=== PATIENT | female | born 1965 | race Caucasian/White ===

== ENCOUNTER 2024-09-28 16:28 | Observation (INO) ==
--- NOTE | 2024-09-28 16:55 | ED Physician Documentation ---
History of Present Illness Stated complaint Stated Complaint: RT LEG PX Chief complaint Chief Complaint: Ext Problem Additonal information Additional information: 58-year-old presents with continued right lower extremity infection. I saw this patient yesterday. Please refer to history obtained then. In short, this patient was seen for cellulitis of her right lower extremity after a lymph edema procedure earlier this month. She had an I&D with surgery at bedside in the ER yesterday. She was placed on linezolid. She presents today due to continued worsening erythema of her right lower extremity. Pain has improved. However, she was concerned that she has noticed the redness swelling. She also had a positive blood culture that was drawn yesterday showing gram-positive cocci in clusters. She thinks she had a subjective fever last night but did not check her temperature. Meds/Allgy Home Medications Ambulatory Orders Medication Instructions Recorded Confirmed linezolid 600 mg tablet (Zyvox) 600 mg PO Q12H #20 tab s 09/27/24 Allergies Allergies Allergy/AdvReac Type Severity Reaction Status Date / Time No Known Drug Allergies Allergy Verified 09/28/24 16:44 PFSH Active Problems All Active Problems (Updated 09/28/24 @ 17:36 by Teodoro Rodriguez MD) Cellulitis and abscess of right leg (Acute) Cellulitis and abscess of right leg (Acute) Fluid collection at surgical site (Acute) Arthralgia of right ankle (Acute) Arthralgia of right knee (Acute) Medical History Medical History (Updated 09/28/24 @ 17:36 by Teodoro Rodriguez MD) History of menopause Lymphedema Social History Social History Smoking Status: Never smoker Relationship: Do you feel safe in your home environment?: Yes Suffered physical, verbal, emotional, or financial abuse?: No POLST Patient has POLST: No Exam Exam Vital Signs: Vital Signs x48h Temp Pulse Resp BP Pulse Ox 09/28/24 16:40 36.9 C 112 H 18 132/72 H 98 Resting comfortably in no acute distress. Patient is afebrile. She is tachycardic. Area of erythema of the right thigh does appear to be expanded compared to when I saw her yesterday. The area is warm to the touch. There is continued clear drainage from the right lower calf surgical wound. There is not significant tenderness of the right lower extremity. There is no crepitus pr esent. Results Vitals Vitals: Vital Signs - 24 hr 09/28/24 16:40 Temperature 36.9 C Temperature Source Oral Pulse Rate 112 H Respiratory Rate 18 Blood Pressure 132/72 H O2 Saturation 98 O2 Source Room air Pain Intensity 6 Oxygen O2 Source Room air Labs Labs: Laboratory Tests 09/28/24 17:03 WBC 7.5 RBC 2.89 L Hgb 8.8 L Hct 28.1 L MCV 97.2 MCH 30.4 MCHC 31.3 L RDW 14.6 Plt Count 377 MPV 9.0 Neut # (Auto) 6.2 Lymph # (Auto) 0.8 L [place] # (Auto) 0.4 Eos # (Auto) 0.1 Baso # (Auto) 0.0 Absolute Nucleated RBC 0.00 Nucleated RBC % 0.0 Sodium 139 Potassium 3.9 Chloride 105 Carbon Dioxide 26 Anion Gap 8.0 BUN 14 Creatinine 0.8 Estimated GFR (MDRD) 73 L Glucose 128 H Lactic Acid 1.3 Calcium 8.7 Total Bilirubin 0.4 AST 19 ALT 15 Alkaline Phosphatase 55 Total Protein 5.5 L Albumin 3.6 Globulin 1.9 L Albumin/Globulin Ratio 1.9 PD Medical Decision Making ED course ED course: This patient presents due to spreading erythema of her right lower extremity. We also called her regarding the positive blood culture. While linezolid should help treat her infection, I think she would benefit from admission for the purulent cellulitis and IV vancomycin. Having lymphedema puts her at risk for cellulitis as well. She is tachycardic here but white blood cell count remains not elevated. Sepsis does not appear to be present at this time, and lactic acid is not elevated. I did add on 2 additional blood cultures to evaluate for true bacteremia versus contaminant. Discharge Plan Discharge Patient Disposition: [facility] DC/Xfer Clinical Impression: Cellulitis and abscess of right leg Prescriptions: No Action linezolid [Zyvox] 600 mg tablet 600 mg PO Q12H Qty: 20 0RF Print Language: Lao
[2024-09-28] MEDS: LACTATED RINGERS 1,000 ML IV STA (17:03)
[2024-09-28] MEDS: VANCOMYCIN INJ 1.25 GM in SODIUM CHLORIDE 0.9% 250 ML IV STA (17:12)
[2024-09-28 17:15] LABS: BASOPHILS % (AUTO) 0.5 %; EOSINOPHILS # (AUTO) 0.1 10^3/uL (0.0-0.7); EOSINOPHILS % (AUTO) 0.7 %; HCT - HEMATOCRIT 28.1 % (37.0-47.0); HGB - HEMOGLOBIN 8.8 g/dL (12.0-16.0); LYMPHOCYTES # (AUTO) 0.8 10^3/uL (1.5-3.5); LYMPHOCYTES % (AUTO) 10.6 %; MEAN CORPUSCULAR HEMOGLOBIN 30.4 pg (27.0-31.0); MEAN CORPUSCULAR HGB CONC 31.3 g/dL (32.0-36.0); MEAN CORPUSCULAR VOLUME 97.2 fL (81.0-99.0); MONOCYTES # (AUTO) 0.4 10^3/uL (0.0-1.0); MONOCYTES % (AUTO) 5.1 %; NEUTROPHILS # (AUTO) 6.2 10^3/uL (1.5-6.6); PLT - PLATELET COUNT 377 10^3/uL (130-450); RED BLOOD COUNT 2.89 10^6/uL (4.20-5.40); RED CELL DISTRIBUTION WIDTH 14.6 % (12.0-15.0); WHITE BLOOD COUNT 7.5 x10^3/uL (4.8-10.8)
[2024-09-28 17:27] LABS: ALBUMIN 3.6 g/dL (3.2-5.5); ALBUMIN/GLOBULIN RATIO 1.9 (1.0-2.2); BILIRUBIN,TOTAL 0.4 mg/dL (0.2-1.0); CALCIUM 8.7 mg/dL (8.5-10.3); CREATININE 0.8 mg/dL (0.6-1.3); POTASSIUM 3.9 mmol/L (3.5-4.5); TOTAL PROTEIN 5.5 g/dL (6.4-8.9)
--- NOTE | 2024-09-28 18:07 | HISTORY & PHYSICAL EXAMINATION ---
Chief Complaint Chief Complaint Chief Complaint: Right lower leg swelling and redness History of Present Illness Admitted From Admitted From:: Home History Obtained From Records Reviewed: EMR History obtained from: Patient Exam Limitations: None History of Present Illness HPI Comment/Other: Patient is a 58-year-old female with a history of lipedema who presents following a tumescent liposuction procedure performed in clinic in [place] 3 weeks ago. This procedure was performed on her upper arms, as well as her calves, and upper thighs. Since then, she has had intermittent fevers and chills. She has also had increasing pain in her bilateral lower extremities, right worse than left. The pain was so severe at home that she decided to come in yesterday. In the emergency room, yesterday, a CT scan was done and it showed superficial fluid collections within the lower extremity at the level of the tibia and distal femur. Venous duplex was also done which showed no DVTs. General surgery did do an incision and drainagethey removed about 3 cc of slightly turbid yellow fluid, which resulted in less pain for the patient. She was sent home with a prescription of Zyvox. She returns today because of worsening redness which she states has spread up from the incision site to near her groin. She also feels warmth and tenderness to touch in that area. She also complains of intermittent fevers and chills. She does state that the pain has improved, and she has been able to walk around. In the ED, patient was normotensive with blood pressure 132/72, she was saturating 98% on room air. Respiratory rate was 18, she was lightly tachycardic at 112. She was afebrile. Lab work was reviewedshe has no leukocytosis. White blood cell count is 7.5. Her hemoglobin is low at 8.8. Her BMP was largely unremarkable. She was admitted for cellulitis that failed outpatient antibiotic therapy. Meds/Allgy Home Medications Ambulatory Orders Medication Instructions Recorded Confirmed linezolid 600 mg tablet (Zyvox) 600 mg PO Q12H #20 tab s 09/27/24 Allergies Allergies Allergy/AdvReac Type Severity Reaction Status Date / Time No Known Drug Allergies Allergy Verified 09/28/24 16:44 PFSH Active Problems All Active Problems (Updated 09/28/24 @ 18:20 by Sonja Luna MD) Anemia (Acute) Gram-positive bacteremia (Acute) Cellulitis and abscess of right leg (Acute) Cellulitis and abscess of right leg (Acute) Fluid collection at surgical site (Acute) Arthralgia of right ankle (Acute) Arthralgia of right knee (Acute) Medical History Medical History History of menopause Lymphedema Social History Social History Smoking Status: Never smoker Relationship: Do you feel safe in your home environment?: Yes Suffered physical, verbal, emotional, or financial abuse?: No POLST Patient has POLST: No POLST Status: Full Code Review of Systems Constitutional Reports: Fatigue, Fever and Chills; Denies: Malaise, Weakness or Poor appetite Eyes Denies: Pain, Irritation, Blurry vision, Vision loss, Diplopia or Eye discomfort Ears, nose, mouth, and throat Denies: Ear pain, Hearing loss, Tinnitus, Nose bleeds, Nasal discharge, Mouth lesions, Bleeding gums or Neck pain Cardiovascular Reports: edema; Denies: Irregular heart rate, chest pain, palpitations, Syncope or shortness of breath with exertion Respiratory Denies: Shortness of breath, Cough, Sputum production or Wheezing Gastrointestinal Denies: Abdominal pain, Abdominal distention, Nausea, Vomiting, Heartburn, Diarrhea or Constipation Genitourinary Denies: Painful urination, Urinary frequency or Urinary urgency Musculoskeletal Reports: Extremity pain and Extremity swelling; Denies: Back pain, Neck pain or Joint pain Integumentary/Breast Reports: Rash, Redness, Skin pain, Skin tenderness, Skin swelling and Non- healing lesion; Denies: Itching or Dryness Neurological Denies: Headache, General weakness, Weakness in extremities, Numbness in extremities, Abnormal gait or Dizziness Psychiatric Denies: Depression, Anxiety, Mood swings or Panic attacks Endocrine Reports: Fatigue; Denies: Excessive urination or Excessive thirst Hematologic/Lymphatic Denies: Anemia, Easy bruising or Easy bleeding Allergic/Immunologic Denies: Hives, Tongue swelling, Facial swelling or Wheezing Prior Level of Functionality: Fully independent at baseline. Has been using a walker to get around. Exam Exam Vital Signs: Vital Signs x48h Temp Pulse Resp BP Pulse Ox 09/28/24 16:40 98.4 F 112 H 18 132/72 H 98 Constitutional normal general appearance, no apparent distress, average body habitus and no limitations HENMT normocephalic, head/scalp atraumatic and hearing grossly normal bilaterally Eyes PERRL, EOMs intact bilaterally and conjunctivae normal Neck/C-Spine visual inspection normal, trachea midline and cervical spine nontender Chest inspection of chest normal Respiratory breath sounds equal bilaterally, normal respiratory effort, clear to auscultation bilaterally, no wheezes, no rales and no retractions Cardiovascular normal heart rate noted, regular rhythm noted, no gallop, no rub and no murmur Gastrointestinal abdomen normal to inspection, abdomen soft to palpation, nontender to palpation and normoactive bowel sounds Genitourinary no CVA tenderness and bladder normal to palpation Back/Pelvis spine normal to inspection, no thoracic spine tenderness and no lumbar spine tenderness Extremities Patient with surgical scars on bilateral arms; good granulation tissue, no drainage or erythema noted in upper extremities. Right lower extremity with swelling, some yellow to clear drainage noted on posterior calf at incision site. Erythema starting from calf with streaks upwards towards the groin. Tender to touch, warm to touch. Left lower extremity with some excoriations, no erythema or tenderness noted. Bilateral nonpitting edema noted in lower extremities as well. Neurology no movement abnormality noted and no focal motor deficit noted Psychiatry mental status grossly normal, oriented x3, thought process normal, cooperative and affect normal Skin See extremities exam for description of rash. Conclusion/Plan Problem List (1) Cellulitis and abscess of right leg: Plan: Patient recently had tumescent liposuction procedure performed in clinic in [place]. All surgical sites are healing appropriately, except right lower extremity. Presented to the ED on 09/27, CT scan demonstrated superficial abscesses. I&D was performed. Patient was sent home on Zyvox. Returns today as she has failed outpatient oral antibiotics. Worsening erythema, streaks noted of her right leg towards the groin. IV vancomycin started. Continue to monitor. (2) Gram-positive bacteremia: Plan: Wound culture from I&D is not growing anything. However, 1 out of 2 blood cultures is growing gram-positive cocci (collected 09/27 during ED visit). There is concern for contamination. However, will await final results. Repeat blood cultures ordered today. (3) Anemia: Plan: Patient does have a anemia, no baseline is documented. Iron, ferritin, TIBC, iron percent saturation are ordered, remain pending. 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 Lab Results Lab results reviewed: Yes 09/28/24 17:03 09/28/24 17:03 Core Measures Anticipated LOS I expect patient to be DC'd or transferred within 96 hours.: Yes DVT/VTE - Prophylaxis VTE/DVT Device ordered at admit?: No VTE/DVT Prophylaxis med ordered at admit?: Yes
[2024-09-28 18:34] LABS: % IRON SATURATION 4 % (20-50); IRON 11 ug/dL (50-212); TOTAL IRON BINDING CAPACITY 248 ug/dL (250-450); TRANSFERRIN 177 mg/dL (203-362)
[2024-09-28] MEDS ORDERED: SODIUM CHLORIDE FLUSH 0.9% 10 ML SYRINGE IVP PRN (18:38)
[2024-09-28] MEDS: LACTATED RINGERS 1,000 ML IV SCH (19:34)
[2024-09-28] MEDS: ACETAMINOPHEN 325 MG TABLET PO PRN (20:16)
[2024-09-29] MEDS: SODIUM CHLORIDE FLUSH 0.9% 10 ML SYRINGE IVP SCH (02:22)
[2024-09-29 05:19] LABS: HCT - HEMATOCRIT 23.8 % (37.0-47.0); HGB - HEMOGLOBIN 7.6 g/dL (12.0-16.0); MEAN CORPUSCULAR HEMOGLOBIN 30.6 pg (27.0-31.0); MEAN CORPUSCULAR HGB CONC 31.9 g/dL (32.0-36.0); MEAN PLATELET VOLUME 9.1 fL (7.9-10.8); RED BLOOD COUNT 2.48 10^6/uL (4.20-5.40); RED CELL DISTRIBUTION WIDTH 14.9 % (12.0-15.0); WHITE BLOOD COUNT 5.1 x10^3/uL (4.8-10.8)
[2024-09-29 05:35] LABS: CALCIUM 8.1 mg/dL (8.5-10.3); CREATININE 0.7 mg/dL (0.6-1.3)
[2024-09-29] MEDS: VANCOMYCIN INJ 0.75 GM in SODIUM CHLORIDE 0.9% 250 ML IV SCH (05:38)
[2024-09-29] MEDS: KETOROLAC 15 MG/ML VIAL IVP PRN (05:43)
--- NOTE | 2024-09-29 07:13 | PHARMACY PROGRESS NOTE ---
Vancomycin Therapy Monitoring Vancomycin Therapy Goals Treatment Indication: CELLULITIS Vancomycin Target Range: Vancomycin AUC Target Range 400-600 mcg*h/ml Plan: New Regimen (Enter new dose and interval): 1 GRAM IV EVERY 12 HOURS Areas for additonal monitoring Areas for additional monitoring: IV to PO when appropriate, Therapy de- escalation based on culture results and Acute Kidney Injury
[2024-09-29] MEDS: ENOXAPARIN 40 MG/0.4 ML SYRINGE SUBQ SCH (08:54)
[2024-09-29] MEDS: FERROUS SULFATE 325 MG TABLET PO SCH (08:55)
--- NOTE | 2024-09-29 09:58 | PROVIDER PROGRESS NOTE ---
Subjective Subjective Subjective: Patient denies any fevers or chills. She still some pain in her right leg. She is having difficulty walking due to the pain. Current Medications Current Medications Current Medications: Current Medications Generic Name Dose Route Start Last Admin Trade Name Freq PRN Reason Stop Dose Admin Acetaminophen 650 mg 09/28/24 18:38 09/29/24 02:21 Acetaminophen 325 Mg Tablet PO 650 mg Q4HR PRN Administration Pain or Fever > 38C (100.4F) Enoxaparin Sodium 40 mg 09/29/24 09:00 09/29/24 08:54 Enoxaparin 40 Mg/0.4 Ml Syringe SUBQ Not Given DAILY CIRILO Ferrous Sulfate 325 mg 09/29/24 08:00 09/29/24 08:55 Ferrous Sulfate 325 Mg Tablet PO 325 mg DAILYWM CIRILO Administration Lactated Ringer's 1,000 mls @ 100 mls/hr 09/28/24 18:38 09/29/24 05:37 Lr IV 100 mls/hr .Q10H CIRILO Administration Vancomycin HCl 1 gm/ Sodium 250 mls @ 167 mls/hr 09/29/24 17:00 Chloride IV Q12H CIRILO Ketorolac Tromethamine 15 mg 09/28/24 18:38 09/29/24 05:43 Ketorolac 15 Mg/Ml Vial IVP 10/03/24 18:37 15 mg Q6HR PRN Administration Severe Pain (Level 7-10) Sodium Chloride 10 ml 09/28/24 18:38 Sodium Chloride Flush 0.9% 10 Ml Syringe IVP PRN PRN NEEDED PER PROVIDER ORDERS Sodium Chloride 10 ml 09/29/24 01:00 09/29/24 08:55 Sodium Chloride Flush 0.9% 10 Ml Syringe IVP 10 ml 0100,0900,1700 CIRILO Administration Objective Vital Signs/Intake & Output Reviewed Vital Signs: Yes Vital Signs: Vital Signs x48h Temp Pulse Resp BP Pulse Ox 09/29/24 09:00 98.1 F 103 H 18 101/61 96 09/29/24 04:45 98.1 F 86 16 112/60 96 Intake & Output: Intake & Output 09/26/24 09/27/24 09/28/24 09/29/24 23:59 23:59 23:59 23:59 Intake Total 1550 / 1550 1650 / 1650 Output Total 200 / 200 2200 / 2200 Balance 1350 / 1350 -550 / -550 Weight (kg) 60 kg Objective General Appearance: positive No acute distress and Alert; negative Anxious Eyes Bilateral: positive Normal inspection, PERRL and EOMI ENT: positive ENT inspection nml, Pharynx nml and No signs of dehydration Neck: positive Nml inspection, Thyroid nml and No JVD Respiratory: positive Chest non-tender, No respiratory distress and Breath sounds nml; negative Wheezes, Rales or Rhonchi Cardiovascular: positive Regular rate & rhythm, No murmur and No gallop; negative Tachycardia or Systolic murmur Abdomen: positive Non-tender, No organomegaly and No distention; negative Guarding or Splenomegaly Back: positive Nml inspection; negative CVA tenderness (R) or CVA tenderness (L) Skin: positive Other (see below.) Extremities: positive Non-tender, Full ROM, Nml appearance and No pedal edema Neurologic/Psychiatric: positive Oriented x3, Motor nml and Mood/affect nml Comments/Other: Patient with surgical scars on bilateral arms; good granulation tissue, no drainage or erythema noted in upper extremities. Right lower extremity with swelling, some yellow to clear drainage noted on posterior calf at incision site. Erythema starting from calf with streaks upwards towards the groin. LLE with two areas of fluctuence, one in inner thigh, one on calf. No erythema of left leg. Lab Results 09/29/24 04:58 09/29/24 04:58 Other Labs: Lab Results x24hrs 09/29/24 09/28/24 Range/Units 04:58 17:03 WBC 5.1 7.5 (4.8-10.8) x10^3/uL RBC 2.48 L 2.89 L (4.20-5.40) 10^6/uL Hgb 7.6 L 8.8 L (12.0-16.0) g/dL Hct 23.8 L 28.1 L (37.0-47.0) % MCV 96.0 97.2 (81.0-99.0) fL MCH 30.6 30.4 (27.0-31.0) pg MCHC 31.9 L 31.3 L (32.0-36.0) g/dL RDW 14.9 14.6 (12.0-15.0) % Plt Count 327 377 (130-450) 10^3/uL MPV 9.1 9.0 (7.9-10.8) fL Neut # (Auto) 6.2 (1.5-6.6) 10^3/uL Lymph # (Auto) 0.8 L (1.5-3.5) 10^3/uL [place] # (Auto) 0.4 (0.0-1.0) 10^3/uL Eos # (Auto) 0.1 (0.0-0.7) 10^3/uL Baso # (Auto) 0.0 (0.0-0.1) 10^3/uL Absolute Nucleated RBC 0.00 x10^3/uL Nucleated RBC % 0.0 /100WBC Sodium 142 139 (135-145) mmol/L Potassium 4.0 3.9 (3.5-4.5) mmol/L Chloride 110 105 (101-111) mmol/L Carbon Dioxide 26 26 (21-32) mmol/L Anion Gap 6.0 8.0 (6-13) BUN 8 14 (6-20) mg/dL Creatinine 0.7 0.8 (0.6-1.3) mg/dL Estimated GFR (MDRD) 86 L 73 L (>89) Glucose 110 H 128 H (74-104) mg/dL Lactic Acid 1.3 (0.5-2.2) mmol/L Calcium 8.1 L 8.7 (8.5-10.3) mg/dL Magnesium 2.0 (1.7-2.3) mg/dL Iron 11 L (50-212) ug/dL TIBC 248 L (250-450) ug/dL % Saturation 4 L (20-50) % Transferrin 177 L (203-362) mg/dL Total Bilirubin 0.4 (0.2-1.0) mg/dL AST 19 (10-42) IU/L ALT 15 (10-60) IU/L Alkaline Phosphatase 55 (42-121) IU/L Total Protein 5.5 L (6.4-8.9) g/dL Albumin 3.6 (3.2-5.5) g/dL Globulin 1.9 L (2.1-4.2) g/dL Albumin/Globulin Ratio 1.9 (1.0-2.2) Diagnostic Imaging Diagnostic Imaging Results: positive Final report reviewed Assessment/Plan Problem List (1) Cellulitis and abscess of right leg: Impression: Patient recently had tumescent liposuction procedure performed in clinic in [place]. All surgical sites are healing appropriately, except right lower extremity. Presented to the ED on 09/27, CT scan demonstrated superficial abscesses. I&D was performed. Patient was sent home on Zyvox. Returns today as she has failed outpatient oral antibiotics. Worsening erythema, streaks noted of her right leg towards the groin. IV vancomycin started. Continue to monitor. Of note, her left lower extremity is also showing areas of fluctuence - we talked about how these could be similar superficial abscesses, but she does not want them imaged or I&D'd at this time. If worsening erythema, tenderness noted, will consult general surgeon. (2) Gram-positive bacteremia: Impression: Wound culture from I&D is not growing anything. However, 1 out of 2 blood cultures is growing gram-positive cocci (collected 09/27 during ED visit). There is concern for contamination. However, will await final results. Repeat blood cultures ordered 09/28. (3) Anemia: Impression: Patient does have a anemia, no baseline is documented. Iron, ferritin, TIBC, iron percent saturation are ordered, indicate iron deficieny anemia. She will need colonoscopy done outpatient. Continue oral supplementation at this time. 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
--- NOTE | 2024-09-29 11:40 | PHARMACY PROGRESS NOTE ---
Best Possible Medication History Admit Date and Time: 09/28/24 1757 Home Medications Medication Instructions Recorded Confirmed Type linezolid 600 mg tablet (Zyvox) 600 mg PO Q12H #20 tab s 09/27/24 Rx acetaminophen 500 mg tablet 1,000 mg PO Q6H PRN pain 0 09/29/24 09/29/24 History naproxen sodium 220 mg tablet 440 mg PO BID PRN pain 0 09/29/24 09/29/24 History ([place]) Processed by: Pharmacy Medications reviewed in ED?: No Medication History completed: Yes Patient Interview: Pt interview ONLY source [facility] Statement: As the person ultimately responsible for medication therapy, providers are able to order a medication from an existing home medication list in [facility] via the "Reconcile Routine" prior to Confirmation of that medication by learning support aide. Such practice is discouraged except when the physician, in their clinical judgment, deems that a medical need exists for a medication without regard to previous use.
[2024-09-29] MEDS: VANCOMYCIN INJ 1 GM in SODIUM CHLORIDE 0.9% 250 ML IV SCH (16:45)
[2024-09-30 04:46] LABS: HCT - HEMATOCRIT 24.1 % (37.0-47.0); HGB - HEMOGLOBIN 7.2 g/dL (12.0-16.0); MEAN CORPUSCULAR HEMOGLOBIN 29.3 pg (27.0-31.0); MEAN CORPUSCULAR HGB CONC 29.9 g/dL (32.0-36.0); RED BLOOD COUNT 2.46 10^6/uL (4.20-5.40); RED CELL DISTRIBUTION WIDTH 15.2 % (12.0-15.0); WHITE BLOOD COUNT 3.8 x10^3/uL (4.8-10.8)
[2024-09-30 05:10] LABS: CALCIUM 8.1 mg/dL (8.5-10.3); CREATININE 0.7 mg/dL (0.6-1.3); MAGNESIUM 2.1 mg/dL (1.7-2.3); POTASSIUM 4.2 mmol/L (3.5-4.5)
--- NOTE | 2024-09-30 18:53 | PROVIDER PROGRESS NOTE ---
Progress Note Progress Note Progress Note: September 30, 2024 6:40 PM She was seen this morning. She tells me that she does not have a primary care provider but her last labs were done in August 2024 on a [facility] phone call. She has chronic lymphedema and underwent surgery in [place]. Preop labs were normal. She was able to pull them up on her phone but does know how to get them into the hospital medical record where her hemoglobin was normal. She subsequently had complications of that surgery and has a right leg cellulitis. She states that she takes care of her , and is looking to the future where she may be donating a kidney to her son who has chronic kidney disease. She denies any history of GI bleed, change in her bowel habits, unexpected weight loss, abdominal pain. She was taking nonsteroidals after her surgery but denies taking them on a regular basis. She denies alcohol use on a regular basis. She has no history of ulcers. No history of colitis. She is not menstruating anymore. Blood pressure this afternoon is 121/67, pulse 94, respirations 18, temperature 37, O2 sat 96% on room air She is a pale fatigued appearing white female who looks her stated age. She is 5 feet 3 inches tall, 60 kg. Well-nourished well-developed. While she is in no acute distress at rest, and is eating her breakfast and her lunch without any difficulty, she does not want me to touch that right leg. It hurts too much. Neck is supple Lungs are clear to auscultation and percussion Regular rate and rhythm Abdomen is soft and nontender Both legs have lymphedema. But the right leg has incision where she has had an abscess drained. You can see where the lymphedema has abated somewhat in the right leg because of shrunken skin. Fading redness along the back calf, back popliteal fossa, and back thigh on the right side. She said the redness is gone all the way into her groin when she was admitted. It has improved. Alert and oriented person, place, time and situation. Labs show a BMP that is normal. Iron studies done September 28 show low iron 11, TIBC 248, percent saturation 4, transferrin 177. White cell count is down. She was admitted at 7.5 and she is 3.8. Hemoglobin was 9.5 on admission and is 7.2 today. Platelets are normal. Blood cultures from September 27 show Micrococcus luteus. It was drawn at 6:55 AM. It was positive on September 28 at 5:31 PM. To about 36 hours after drawn. 1 out of 2 sets. This is a skin contaminant. Blood cultures from September 28 are no growth after 2 days Assessment/Plan Problem List (1) Cellulitis and abscess of right leg: Impression: Patient recently had tumescent liposuction procedure performed in clinic in [place]. All surgical sites are healing appropriately, except right lower extremity. Presented to the ED on 09/27, CT scan demonstrated superficial abscesses. I&D was performed. Patient was sent home on Zyvox. Returns 09/28 as she has failed outpatient oral antibiotics. Worsening erythema, streaks noted of her right leg towards the groin. IV vancomycin started. She has responded but the blood culture is growing a skin contaminant not considered a true pathogen. Of note, her left lower extremity is also showing areas of fluctuence - we talked about how these could be similar superficial abscesses, but she does not want them imaged or I&D'd at this time. If worsening erythema, tenderness noted, I am to consult general surgeon. -Exam today shows overall improvement. The right leg is shrinking. The redness is fading. Left leg not worse (not better but not worse), So I will just continue the vancomycin for now. (2) Micrococcus luteus bacteremia: Impression: Wound culture from I&D is not growing anything. However, 1 out of 2 blood cultures is growing the skin contaminant (collected 09/27 during ED visit). There is concern that this is contamination. Repeat blood cultures are negative for 09/28.But the leg did have evidence of cellulitis with redness, heat, and lymphangitis spread up to the groin on the right leg. That has improved. I will continue antibiotics. But I will not treat for a duration of gram-positive bacteremia, and will instead treat for duration of cellulitis. (3) Anemia: Impression: Patient does have a anemia, And she shows me where her baseline showed a normal hemoglobin in the last few months. She does not have a history of GI blood loss. Iron, ferritin, TIBC, iron percent saturation are ordered, indicate iron deficieny anemia. Today she dropped a 7.2 hemoglobin. Because of the low hemoglobin, fatigue, and her severe paleness, I did offer her a unit of transfusion. She says that she really does not want to get a transfusion because she is looking down the road with donating a kidney to her son.She does not want to jeapordize his chances if she gets an infectious disease from the blood products. She will need colonoscopy done outpatient. Continue oral supplementation at this time. 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 Current Medications Current Medications Current Medications: Current Medications Generic Name Dose Route Start Last Admin Trade Name Freq PRN Reason Stop Dose Admin Acetaminophen 650 mg 09/28/24 18:38 09/30/24 13:51 Acetaminophen 325 Mg Tablet PO 650 mg Q4HR PRN Administration Pain or Fever > 38C (100.4F) Enoxaparin Sodium 40 mg 09/29/24 09:00 09/30/24 09:49 Enoxaparin 40 Mg/0.4 Ml Syringe SUBQ Not Given DAILY CIRILO Ferrous Sulfate 325 mg 09/29/24 08:00 09/30/24 09:48 Ferrous Sulfate 325 Mg Tablet PO 325 mg DAILYWM CIRILO Administration Lactated Ringer's 1,000 mls @ 100 mls/hr 09/28/24 18:38 09/30/24 12:41 Lr IV 100 mls/hr .Q10H CIRILO Administration Vancomycin HCl 1 gm/ Sodium 250 mls @ 167 mls/hr 09/29/24 17:00 09/30/24 17:23 Chloride IV 167 mls/hr Q12H CIRILO Administration Ketorolac Tromethamine 15 mg 09/28/24 18:38 09/29/24 05:43 Ketorolac 15 Mg/Ml Vial IVP 10/03/24 18:37 15 mg Q6HR PRN Administration Severe Pain (Level 7-10) Sodium Chloride 10 ml 09/28/24 18:38 Sodium Chloride Flush 0.9% 10 Ml Syringe IVP PRN PRN NEEDED PER PROVIDER ORDERS Sodium Chloride 10 ml 09/29/24 01:00 09/30/24 09:51 Sodium Chloride Flush 0.9% 10 Ml Syringe IVP 10 ml 0100,0900,1700 CIRILO Administration
[2024-10-01 05:09] VITALS: O2SAT 95
[2024-10-01 05:50] LABS: BASOPHILS # (AUTO) 0.1 10^3/uL (0.0-0.1); BASOPHILS % (AUTO) 1.1 %; EOSINOPHILS # (AUTO) 0.1 10^3/uL (0.0-0.7); EOSINOPHILS % (AUTO) 2.7 %; HCT - HEMATOCRIT 25.3 % (37.0-47.0); LYMPHOCYTES # (AUTO) 0.9 10^3/uL (1.5-3.5); LYMPHOCYTES % (AUTO) 19.2 %; MEAN CORPUSCULAR HEMOGLOBIN 30.2 pg (27.0-31.0); MEAN CORPUSCULAR HGB CONC 31.6 g/dL (32.0-36.0); MEAN CORPUSCULAR VOLUME 95.5 fL (81.0-99.0); MEAN PLATELET VOLUME 8.7 fL (7.9-10.8); MONOCYTES # (AUTO) 0.4 10^3/uL (0.0-1.0); MONOCYTES % (AUTO) 7.4 %; NEUTROPHILS # (AUTO) 3.3 10^3/uL (1.5-6.6); NEUTROPHILS % (AUTO) 69.2 %; PLT - PLATELET COUNT 351 10^3/uL (130-450); RED BLOOD COUNT 2.65 10^6/uL (4.20-5.40); RED CELL DISTRIBUTION WIDTH 14.8 % (12.0-15.0); WHITE BLOOD COUNT 4.8 x10^3/uL (4.8-10.8)
[2024-10-01 08:38] VITALS: BP 126/76; TEMP 97.9
--- NOTE | 2024-10-01 08:47 | Discharge Summary ---
"Discharge Summary Admit Date: 09/28/24 Discharge Date: 10/01/24 Discharging Provider: Faith De La Fuente MD Primary Care Provider: none Code Status: Attempt Resuscitation DIAGNOSES Discharge Diagnoses with Status of Each Condition: 1. Cellulitis of right leg 2. Postoperative cellulitis of surgical wound 3. Micrococcus leutus bacteremia, most likely contamination 4. Severe iron deficiency anemia 5. Hereditary lymphedema HPI History of Present Illness: Patient is a 58-year-old female with a history of lipedema who presents following a tumescent liposuction procedure performed in clinic in [place] 3 weeks ago. This procedure was performed on her upper arms, as well as her calves, and upper thighs. Since then, she has had intermittent fevers and chills. She has also had increasing pain in her bilateral lower extremities, right worse than left. The pain was so severe at home that she decided to come in yesterday. In the emergency room, yesterday, a CT scan was done and it showed superficial fluid collections within the lower extremity at the level of the tibia and distal femur. Venous duplex was also done which showed no DVTs. General surgery did do an incision and drainagethey removed about 3 cc of slightly turbid yellow fluid, which resulted in less pain for the patient. She was sent home with a prescription of Zyvox. She returns today because of worsening redness which she states has spread up from the incision site to near her groin. She also feels warmth and tenderness to touch in that area. She also complains of intermittent fevers and chills. She does state that the pain has improved, and she has been able to walk around. In the ED, patient was normotensive with blood pressure 132/72, she was saturating 98% on room air. Respiratory rate was 18, she was lightly tachycardic at 112. She was afebrile. Lab work was reviewedshe has no leukocytosis. White blood cell count is 7.5. Her hemoglobin is low at 8.8. Her BMP was largely unremarkable. She was admitted for cellulitis that failed outpatient antibiotic therapy. CONSULTS | PROCEDURES Procedures: 1. Right lower extremity CT with 2 superficial fluid collections within the calf at the level of the tibia and distal femur. Findings raise concern for abscess in the presence of purulent drainage. No evidence of osteomyelitis. No evidence of compartment syndrome. Both collections superficial. 2. Venous Doppler without deep venous thrombosis of the visualized lower extremity, bilateral 3. Blood cultures from September 27, source left hand, positive for Micrococcus luteus 36 hours after culture submitted. 4. Repeat blood cultures September 28 negative at 2 days. HOSPITAL COURSE Hospital Course: The patient had 2 doses of linezolid in the outpatient setting and the pain and swelling her leg had not responded enough. She came back to the ER. We also found her to have positive blood cultures from her ER visit. We placed her on empiric antibiotics with vancomycin. Once the identification came back we realized that this most likely was skin contamination causing false positive blood cultures. The patient was afebrile, had a normal white cell count, and the only other finding was that of severe iron deficiency anemia with an iron level of 11. She had a colonoscopy a year to a year and a half ago that was normal. She states that she had blood work done with a telehealth provider in August of this year prior to her surgery and her hemoglobin was 13.2. She had no symptoms of GI bleed. No black tarry stools. No weight loss no abdominal pain. The only source of her bleeding could have possibly been the surgery from 3 weeks ago. Patient declined transfusion even though hemoglobin was 7.2. She states that she is going to be a future kidney donor to her son and does not want to put any of his health at risk by receiving a kidney that may have infection obtained from blood transfusion. Pros and cons discussed with the patient including the risk of not getting a transfusion and she has definite thought process about why she declines. She is fatigued, a little lightheaded but not short of breath or with chest pain.She states that she does not have a regular primary care provider. She does not feel like she needs 1. Hence she saw telehealth for her lab work preoperatively. Unclear how she got a colonoscopy a year and a half ago without a PCP. But I have recommended that she please establish yourself with a primary care provider, get follow-up for her iron deficiency anemia to make sure she is responded to iron and vitamin C, and to get a follow-up upper GI or lower GI at the discretion of the PCP. With leg elevation, IV antibiotics she had significant reduction in edema in the right leg. However this patient continues to have chronic lymphedema changes of both lower extremities. The redness on the back calf and going up the popliteal fossa and back of the thigh have resolved. She still has some drainage from her surgical site and I explained that lymphedema is difficult to control when there is a puncture of the skin. She may have chronic leaking for weeks. Specific instructions were given for wound care. I would like her to be on an iron tablet twice a day until her hemoglobin recovers. I like her to take vitamin C with iron. She already has linezolid at home and I would like her to take 3 more days of this at home. She is discharged in stable condition with a blood pressure 126/76, pulse 90, respirations 18, temperature 36.6, O2 sat 95% on room air. She is 5 foot 3 inches tall, 60 kg. An exceedingly pale female who looks stated age. Alert and oriented person, place, time and situation. Able to follow commands. Neck is supple, lungs are clear, regular rate and rhythm. The abdomen is soft and nontender with normal bowel sounds. Both legs have chronic lymphedema changes with the right leg having open area that is draining clear serous fluid. The redness in the back of the calf, popliteal fossa and back of the thigh that went to the groin on admission have improved tremendously. Greater than 30 minutes spent coordinating discharge This document was made in part using voice recognition software. While efforts are made to proofread this document, sound alike and grammatical errors may occur. ALLERGIES Allergies Allergy/AdvReac Type Severity Reaction Status Date / Time No Known Drug Allergies Allergy Verified 09/28/24 16:44 MEDICATIONS Ambulatory Orders Medication Instructions Recorded Confirmed linezolid 600 mg tablet (Zyvox) 600 mg PO Q12H #20 tab s 09/27/24 acetaminophen 500 mg tablet 1,000 mg PO Q6H PRN pain 0 09/29/24 09/29/24 naproxen sodium 220 mg tablet 440 mg PO BID PRN pain 0 09/29/24 09/29/24 (Aleve) ascorbic acid (vitamin C) 500 mg 500 mg PO DAILY #60 t abs 10/01/24 tablet (Vitamin C) ferrous gluconate 324 mg (37.5 mg 324 mg PO TID #180 t abs 10/01/24 iron) tablet PHYSICAL EXAM AT DISCHARGE Vital Signs: Vital Signs x48h Temp Pulse Resp BP Pulse Ox 10/01/24 07:35 36.6 C 90 18 126/76 95 05/28/25 05:00 36.7 C 91 18 124/71 95 LABS 10/01/24 05:35 09/30/24 04:20 Discharge Plan Discharge Patient Disposition: 01 Home, Self Care Condition: Good Medically Cleared Date:: 09/24/24 Prescriptions: New ascorbic acid (vitamin C) [Vitamin C] 500 mg tablet 500 mg PO DAILY Qty: 60 0RF ferrous gluconate 324 mg (37.5 mg iron) tablet 324 mg PO TID Qty: 180 0RF Continued linezolid [Zyvox] 600 mg tablet 600 mg PO Q12H Qty: 20 0RF acetaminophen 500 mg tablet 1,000 mg PO Q6H PRN (Reason: pain) naproxen sodium [Aleve] 220 mg tablet 440 mg PO BID PRN (Reason: pain) Diet: Regular Health Concerns: Approximately 3 weeks ago you had a surgical procedure for lymphedema. Your lymphedema is of your legs and it is a hereditary condition within your family. Unfortunately any puncture of the skin in a patient who has lymphedema results and chronic oozing of the punctured limb. You had that complication and then a secondary complication of skin infection at the surgical site. You came to our emergency room and were given antibiotics. However after 2 doses, the pain continued and the redness was worse into your groin and you came back to the emergency room. It was good to know that your white cell count was normal, you did not have a fever. You were given intravenous antibiotics and a blood culture from your ER visit on September 27 was positive. We repeated your blood cultures September 28 and those were negative. We did ultrasounds of your legs to make sure there was no clots and you did not have clots in your vein. We do think that the blood culture from September 27 was a contamination of skin bacteria and not true infection inside your bloodstream. Your right leg has responded to treatment and it is smaller. He still have the lymphedema. But the redness is improved. You continued to be without fever or elevated white cell count while in the hospital. While you were here we identified you as having iron deficiency anemia. Your iron level was 11. You were able to show me on your phone where hemoglobin was 13.9 prior to surgery for your legs. Here you have drifted down as low as 7.2 g of hemoglobin. You have declined getting a transfusion because you do not want to put your son's future in jeopardy. You are to be a kidney donor for him and do not want to get a blood transfusion at this time. You worry about getting an infection. Since you have no signs or symptoms of blood loss from your stomach or colon, nor have a history of anemia, we think that your anemia may be from blood loss from the surgery. You were started on iron and vitamin C by mouth. Instructions for discharge: 1. Please establish yourself with a PCP because you do need follow-up for the cellulitis, lymphedema, and iron deficiency anemia 2. I would like you to complete 3 more days of antibiotic therapy. You have the antibiotic at home and I would like you to take 1 tablet of Zyvox twice a day for 3 more days. 3. I am writing a prescription for ferrous gluconate, an iron supplement, to take twice a day for the next 2 months. Please take 1 vitamin C capsule of 500 mg a day with the iron supplement. 4. Because your skin has been punctured where you have lymphedema, I fear that you may have chronic draining for weeks if not months. A. Clean your leg daily with soap and water. Dry it. And then wrap with Kerlix to absorb the liquid that is draining. B. Elevate your leg is much as possible when sitting down C. Use compression stockings or liborio wrap bandage compression every day to reduce the edema in your legs. If you use Liborio wrap bandage compression you must start at the toes and work your way up. Otherwise your foot will become a sausage. Print Language: Divehi Patient Instructions: ED Lymphedema Stand Alone Forms: PCP List"
== END 2024-10-01 11:01 | disposition home or self-care (01) ==
LOC: ED 16:28 → MS3 16:28
PROVIDERS: ADMIT Internal Medicine; ATTEND Internal Medicine
DX: T81.41XA Infection following a procedure, superficial incisional surgical site, initial encounter; R00.0 Tachycardia, unspecified; L03.115 Cellulitis of right lower limb; D50.9 Iron deficiency anemia, unspecified; Q82.0 Hereditary lymphedema; L76.82 Other postprocedural complications of skin and subcutaneous tissue